=== PATIENT | male | born 1995 | race Caucasian/White ===

== ENCOUNTER 2016-10-01 01:16 | Emergency (ER) | payer OTHER ==
[~2016-10-01] VITALS: Ht 167.6 cm; Wt 127.2 kg
[2016-10-01 01:19] VITALS: TEMP 36.7; Ht 167.6 cm; Wt 127.2 kg
[2016-10-01] MEDS ORDERED: IBUPROFEN 600 MG TAB PO STA (01:47)
[2016-10-01] MEDS ORDERED: HYDROCODONE/ACETAMOPHEN 5/325MG TAB PO ONE (02:00)
[2016-10-01] MEDS ORDERED: ENOXAPARIN 1 MG/KG SQ ONE (04:15)
[2016-10-01] MEDS: WARFARIN SOD 5 MG TAB PO ONE ×2 (04:15→05:04)
[2016-10-01] MEDS ORDERED: LOVENOX TEACHING KIT ONE (04:15)
[2016-10-01] MEDS ORDERED: ENOXAPARIN 150 MG/1ML SYR SQ STA (04:32)
[2016-10-01 05:06] LABS: HEMATOCRIT 44.2 % (42-52); MEAN CELL VOLUME 66.2 fL (80-100); MEAN CORPUSCULAR HEMOGLOBIN 21.7 pg (25-34); MEAN CORPUSCULAR HGB CONC 32.8 g/dl (32-36); PLATELET COUNT 162 K/uL (130-400); RED BLOOD COUNT 6.68 M/uL (4.7-6.1); WHITE BLOOD COUNT 9.36 K/uL (4.8-10.8)
[2016-10-01 05:23] LABS: PARTIAL THROMBOPLASTIN RATIO 1.2; PROTHROMBIN TIME (PATIENT) 10.7 SECONDS (9.0-12.0)
[2016-10-01 05:28] LABS: ALT/SGPT 23 U/L (12-78); AST/SGOT 11 U/L (15-37); BLOOD UREA NITROGEN 11 mg/dl (7-18); BUN/CREATININE RATIO 15.6 (10-20); CALCIUM 7.6 mg/dl (8.5-10.1); CARBON DIOXIDE 28 mmol/L (21-32); CHLORIDE 107 mmol/L (98-107); CREATININE 0.68 mg/dl (0.60-1.40); GLUCOSE 96 mg/dl (70-99); POTASSIUM 3.7 mmol/L (3.5-5.1); SODIUM 142 mmol/L (136-145)
[2016-10-01 05:31] LABS: ALKALINE PHOSPHATASE 66 U/L (45-117)
[2016-10-01 05:38] LABS: COMPLETE YES; EOSINOPHIL % 1.8 %; LYMPH ABS # 3.51 K/uL (1.2-3.4); LYMPHOCYTE % 37.5 %; MICROCYTOSIS PRESENT; NEUTROPHILS % 41.9 %; VARIANT LYM ABS # 1.59 K/uL
[2016-10-01] MEDS ORDERED: WARFARIN SOD 5 MG TAB PO ONE (06:00)
[2016-10-01] MEDS ORDERED: ENOX120I SQ (06:11)
[2016-10-01] MEDS ORDERED: WARF5TAB90 PO (06:11)
--- NOTE | 2016-10-01 07:14 | DIAGNOSTIC IMAGING REPORT ---
RIGHT LOWER EXTREMITY VENOUS DOPPLER HISTORY: Right lower terminate pain and swelling. COMPARISON STUDY: None. FINDINGS: Thrombus identified within one of 2 posterior tibial veins. The remaining right lower extremity deep venous structures are patent. Edema deep to the incision within the right lower leg. IMPRESSION: Thrombus within one of 2 right posterior tibial veins. Electronically signed by: Hardik Boyd M.D. 10/01/2016 7:13 AM Dictated Date/Time: 10/01/2016 7:12 AM
--- NOTE | 2016-10-01 07:34 | DIAGNOSTIC IMAGING REPORT ---
RIGHT TIBIA/FIBULAR 2 VIEWS HISTORY: Right lower extremity pain. COMPARISON: None. FINDINGS: The proximal tibia and fibula. Intact. There is a cortical plate transfixed with screws bridging an old, healed fracture at the distal shaft of the tibia. The hardware appears intact. Mild distal pretibial soft tissue swelling. There is a nonunited mildly displaced fracture involving the distal shaft of the fibula which is likely old. This demonstrates 3 mm of lateral and posterior displacement. IMPRESSION: 1. Mildly displaced nonunited fracture at the distal shaft of the fibula which is likely old. 2. Old, healed distal tibial fracture with a cortical plate and screws. The hardware appears intact. 3. Mild distal pretibial soft tissue swelling. Electronically signed by: Hardik Boyd M.D. 10/01/2016 7:33 AM Dictated Date/Time: 10/01/2016 7:30 AM
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
[2016-10-01 09:40] VITALS: BP 137/79; PULSE 69; O2SAT 98
[2016-10-01] MEDS ORDERED: HYDR-5688 PO (19:32)
[2016-10-04 14:35] LABS: ANTITHROMBINIII ACTIVITY** 84 % activity (80-120); B2 GLYCOPROTEIN IGA <9 SAU (<=20); B2 GLYCOPROTEIN IGG <9 SGU (<=20); B2 GLYCOPROTEIN IGM <9 SMU (<=20); LUPUS ANTICOAGULANT** TC36573X Negative (Negative); PROTEIN C ACTIVITY** TC 1777X 108 % (70-180); PROTEIN S ACT(FUNCT)**1779X 116 % (70-150)
[2016-10-09] MEDS ORDERED: CMD5 PO (12:19)
[2016-10-16] MEDS ORDERED: WARF7.5T4 PO (16:14)
== END 2016-10-01 09:40 | disposition home or self-care (01) ==
LOC: C.EDB 01:17
DX: I82.441 Acute embolism and thrombosis of right tibial vein (principal); F17.200 Nicotine dependence, unspecified, uncomplicated

== ENCOUNTER 2016-10-01 16:30 | Emergency (ER) | payer OTHER ==
[~2016-10-01] VITALS: Ht 172.7 cm; Wt 126.5 kg
[~2016-10-01 16:30] MED LIST: ENOX120I SQ; WARF5TAB90 PO
[2016-10-01 16:46] VITALS: TEMP 37.1; Ht 172.7 cm; Wt 126.5 kg
[2016-10-01] MEDS ORDERED: HYDROCODONE/ACETAMINOPHEN 7.5/325MG TAB PO STA (19:07)
[2016-10-01] MEDS ORDERED: ENOXAPARIN 120 MG/0.8 ML SYR SQ ONE (19:15)
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
[2016-10-01] MEDS ORDERED: HYDR-5688 PO (19:32)
[2016-10-01 20:00] VITALS: BP 144/75; PULSE 65; O2SAT 99
[2016-10-09] MEDS ORDERED: CMD5 PO (12:19)
[2016-10-16] MEDS ORDERED: WARF7.5T4 PO (16:14)
== END 2016-10-01 20:03 | disposition home or self-care (01) ==
LOC: C.EDB 16:32
DX: I82.441 Acute embolism and thrombosis of right tibial vein (principal); F17.200 Nicotine dependence, unspecified, uncomplicated; Z79.01 Long term (current) use of anticoagulants

== ENCOUNTER → 2016-10-04 | Outpatient (CLI) | payer OTHER ==
[~2016-10-04] MED LIST changes: +CMD5 PO; +HYDR-5688 PO; +WARF7.5T4 PO
[2016-10-04 13:32] LABS: INR 1.2 (0.9-1.1); PROTHROMBIN TIME (PATIENT) 13.3 SECONDS (9.0-12.0)
== END | disposition home or self-care (01) ==
LOC: C.LABBC 09:33
PROVIDERS: ATTEND Internal Medicine Geriatric Medicine
DX: Z86.718 Personal history of other venous thrombosis and embolism (principal)

== ENCOUNTER 2016-10-06 00:34 | Emergency (ER) | payer OTHER ==
[~2016-10-06] VITALS: Ht 175.3 cm; Wt 125.9 kg
[~2016-10-06 00:34] MED LIST changes: -CMD5 PO; -WARF7.5T4 PO
[2016-10-06 00:46] VITALS: TEMP 37; Ht 175.3 cm; Wt 125.9 kg
[2016-10-06] MEDS ORDERED: WARF7.5T4 PO (01:01)
[2016-10-06] MEDS ORDERED: SODIUM CHLORIDE 0.9% 500ML 500 ML IV STA (01:02)
[2016-10-06] MEDS ORDERED: ENOX120I SQ (01:02)
--- NOTE | 2016-10-06 01:04 | EMERGENCY ROOM VISIT NOTE ---
History Report prepared by Mainor: Coty Sanches Under the Supervision of: Dr. Eliza Olea M.D. First contact with patient: 00:54 Chief Complaint: SWELLING TO EXTREMITY Stated Complaint: SWELLING RIGHT LEG History of Present Illness The patient is a 21 year old male who presents to the Emergency Room via with complaints of worsening swelling to his right leg with onset one day ago. He rates his discomfort as a 5/10. Recently, the patient was diagnosed with a DVT in his right leg. He was put on Coumadin and Lovenox. Per , blood work was done one day ago, and it was determined that the patient's INR was subtherapeutic. They were told to increase his dose of Coumadin. The patient continues his Lovenox. Today, the patient had shortness of breath. Source of History: patient, spouse/significant other Onset: one day ago Position: leg (right) Symptom Intensity: 5/10 Quality: other (leg swelling) Timing: worsening Associated Symptoms: + SOB Review of Systems See HPI for pertinent positives & negatives. A total of 10 systems reviewed and were otherwise negative. Past Medical & Surgical Medical Problems: (1) DVT (deep venous thrombosis) Family History Blood clots Diabetes mellitus Hypertension Kidney disease Kidney stones Social History Smoking Status: Current Every Day Smoker Drug Use: none Marital Status: Housing Status: lives with family Current/Historical Medications Scheduled Enoxaparin (Lovenox), 120 MG SQ Q12H Warfarin Sod (Jantoven), 7.5 MG PO DAILY Scheduled PRN Hydrocodone/Acetaminophen 5MG/325MG ([place] 5MG/325MG), 1 TABLET PO q4-6 PRN for Pain Allergies Coded Allergies: No Known Allergies (Unverified , 10/01/16) Physical Exam Vital Signs Date Time Temp Pulse Resp B/P Pulse Ox O2 Delivery O2 Flow Rate FiO2 10/06/16 03:32 57 20 134/74 96 10/06/16 02:45 72 20 156/101 98 Room Air 10/06/16 00:46 37.0 65 18 135/80 98 Room Air Physical Exam Vital signs reviewed. General: Well-appearing male, obese. HEENT: No scleral icterus, PERRLA, neck supple. Atraumatic. Cardiovascular: Regular rate and rhythm, no extra sounds. Pulmonary: Clear to auscultation bilaterally, normal work of breathing. Abdomen: Soft, nontender, nondistended, positive bowel sounds. Musculoskeletal: Atraumatic, edema to the mid and distal right lower extremity. Neurologic: Patient awake alert and oriented x 3, full strength in all 4 extremities. Cranial nerves 2 through 12 grossly intact. Skin: Warm, dry, no rash Medical Decision & Procedures ER Provider Diagnostic Interpretation: CT results as stated below per my review and radiologist interpretation: CTA Chest: No evidence of pulmonary embolism or aortic dissection. No lung consolidation, pneumothorax, or pleural effusion. Markedly enlarged heterogenous thyroid gland with left inferior extension into the upper mediastinum. There is associated mass effect on the trachea. An ill-defined 2.5 cm left thyroid nodule is noted. Consider followup ultrasound if indicated. Probably residual thymic tissue. Radiologist: Kell Moser MD. Laboratory Results 10/06/16 01:14 Red Blood Count 7.02, Mean Corpuscular Volume 64.0, Mean Corpuscular Hemoglobin 21.4, Mean Corpuscular Hemoglobin Concent 33.4 10/06/16 01:14 Test 10/06/16 01:14 White Blood Count 7.75 K/uL (4.8-10.8) Red Blood Count 7.02 M/uL (4.7-6.1) Hemoglobin 15.0 g/dL (14.0-18.0) Hematocrit 44.9 % (42-52) Mean Corpuscular Volume 64.0 fL (80-100) Mean Corpuscular Hemoglobin 21.4 pg (25-34) Mean Corpuscular Hemoglobin Concent 33.4 g/dl (32-36) Platelet Count 183 K/uL (130-400) RDW Standard Deviation 34.5 fL (36.4-46.3) RDW Coefficient of Variation 15.1 % (11.5-14.5) Neutrophils % (Manual) 40.0 % Lymphocytes % (Manual) 49.0 % Monocytes % (Manual) 6.0 % Eosinophils % (Manual) 5.0 % Neutrophils # (Manual) 3.10 K/uL (1.4-6.5) Total Absolute Neutrophils 3.10 K/uL (1.4-6.5) Lymphocytes # (Manual) 3.80 K/uL (1.2-3.4) Total Absolute Lymphocytes 3.80 K/uL (1.2-3.4) Monocytes # (Manual) 0.47 K/uL (0.11-0.59) Eosinophils # (Manual) 0.39 K/uL (0-0.5) Microcytosis PRESENT Prothrombin Time 14.0 SECONDS (9.0-12.0) Prothromb Time International Ratio 1.3 (0.9-1.1) Activated Partial Thromboplast Time 38.0 SECONDS (21.0-31.0) Partial Thromboplastin Ratio 1.5 Anion Gap 9.0 mmol/L (3-11) Est Creatinine Clear Calc Drug Dose 201.1 ml/min Estimated GFR () 149.9 Estimated GFR (Non- 129.3 BUN/Creatinine Ratio 17.0 (10-20) Calcium Level 7.9 mg/dl (8.5-10.1) Total Bilirubin 0.3 mg/dl (0.2-1) Direct Bilirubin < 0.1 mg/dl (0-0.2) Aspartate Amino Transf (AST/SGOT) 57 U/L (15-37) Alanine Aminotransferase (ALT/SGPT) 105 U/L (12-78) Alkaline Phosphatase 65 U/L (45-117) Total Protein 7.5 gm/dl (6.4-8.2) Albumin 3.5 gm/dl (3.4-5.0) Chemistry Specimen Hemolysis Laboratory results per my review. Medications Administered Medications (Trade) Dose Ordered Sig/Alesia Route Start Time Stop Time Status Last Admin Dose Admin Sodium Chloride (Nss 500ml) 500 ml @ 999 mls/hr Q31M STAT IV 10/06/16 01:02 10/06/16 01:32 DC 10/06/16 01:20 999 MLS/HR ECG Indication: SOB/dyspnea Rate (beats per minute): 68 Rhythm: normal sinus (with sinus arrhythmia ) Findings: other (J point elevation, possible pericarditis ) ED Course 0056: Past medical records reviewed. The patient was evaluated in room A12. A complete history and physical examination was performed. 0102: Sodium Chloride 500 ml @ 999 mls/hr IV 0310: Upon reevaluation, the patient appeared to have improvement of his symptoms. I discussed findings with the patient and his . They verbalized agreement of the treatment plan. The patient was discharged home. Medical Decision The patient is a 21 year old male who presents to the ED with complaints of right leg swelling. Differentials include: Etiologies such as DVT, musculoskeletal, infection, joint effusion, trauma, lymphedema, idiopathic, CHF , as well as others were entertained. This pt was evaluated and appears to be in no distress. IV access was obtained and lab work was drawn. Laboratory work reveals no significant abnormalities. Patient's INR is subtherapeutic. He continues to use his Lovenox. CT scan of the chest was performed as the patient is complaining of pleuritic pain with shortness of breath. This study is negative for PE. The thyroid is large with a thyroid nodule appreciated. Patient and his are informed of this finding. He will continue his Lovenox and increase the Coumadin as directed by Coumadin clinic earlier today. He will continue to follow with Coumadin clinic. Patient will follow-up with his primary care physician regarding the thyroid and return to the ER for worsening of symptoms or any medical concerns. Impression Primary Impression: Enlarged thyroid Additional Impressions: Thyroid nodule DVT (deep venous thrombosis) Scribe Attestation The scribe's documentation has been prepared under my direction and personally reviewed by me in its entirety. I confirm that the note above accurately reflects all work, treatment, procedures, and medical decision making performed by me. Departure Information Dispostion Home / Self-Care Referrals No Doctor, Assigned (PCP) Forms HOME CARE DOCUMENTATION FORM, IMPORTANT VISIT INFORMATION, WORK / SCHOOL INSTRUCTIONS Patient Instructions My [facility] Additional Instructions Diagnosis: DVT, enlarged thyroid, thyroid nodule Continue Coumadin as prescribed today as well as Lovenox injections. Continue management with your primary care physician. Have your blood pressure rechecked and further evaluation of your thyroid gland will be necessary. Wear the support stocking and elevate the leg as much as possible. Return to the emergency department for worsening of symptoms or any medical concerns. Problem Qualifiers Additional Impressions: DVT (deep venous thrombosis) DVT location: lower extremity Affected thrombotic vein of extremity: tibial Laterality: right Chronicity: acute Qualified Codes: I82.441 - Acute embolism and thrombosis of right tibial vein
[2016-10-06] MEDS ORDERED: OPTIRAY 320 IV PRN (01:15)
[2016-10-06 01:27] LABS: HEMATOCRIT 44.9 % (42-52); MEAN CORPUSCULAR HEMOGLOBIN 21.4 pg (25-34); MEAN CORPUSCULAR HGB CONC 33.4 g/dl (32-36); PLATELET COUNT 183 K/uL (130-400); RED BLOOD COUNT 7.02 M/uL (4.7-6.1); WHITE BLOOD COUNT 7.75 K/uL (4.8-10.8)
[2016-10-06 01:56] LABS: ALKALINE PHOSPHATASE 65 U/L (45-117); ALT/SGPT 105 U/L (12-78); BLOOD UREA NITROGEN 13 mg/dl (7-18); CALCIUM 7.9 mg/dl (8.5-10.1); CARBON DIOXIDE 28 mmol/L (21-32); CHLORIDE 105 mmol/L (98-107); CREATININE 0.75 mg/dl (0.60-1.40); SODIUM 142 mmol/L (136-145)
[2016-10-06 02:09] LABS: GLUCOSE 84 mg/dl (70-99); POTASSIUM 4.2 mmol/L (3.5-5.1)
[2016-10-06 02:13] LABS: AST/SGOT 57 U/L (15-37)
[2016-10-06 02:23] LABS: INR 1.3 (0.9-1.1); PARTIAL THROMBOPLASTIN RATIO 1.5
[2016-10-06 03:23] LABS: COMPLETE YES; MICROCYTOSIS PRESENT
[2016-10-06 03:32] VITALS: BP 134/74; PULSE 57; O2SAT 96
--- NOTE | 2016-10-06 06:14 | DIAGNOSTIC IMAGING REPORT ---
CHEST CTA for PULMONARY ARTERIES CT DOSE: 781.50 mGy.cm HISTORY: Chest pain dyspnea TECHNIQUE: Multiaxial CT images of the chest were performed following the intravenous administration of contrast to evaluate the pulmonary arteries. Maximal intensity projection images were also obtained. COMPARISON STUDY: None. FINDINGS: There is a normal caliber thoracic aorta with no evidence for dissection. There is no evidence for pulmonary embolus. No pleural effusions. No pneumothorax. The liver and spleen are unremarkable. No mediastinal or hilar lymphadenopathy. The central airways are patent. The lungs are clear. Note is made of an enlarged heterogeneous substernal thyroid IMPRESSION: No evidence for pulmonary embolus. Lungs are clear. Enlarged heterogeneous substernal thyroid Electronically signed by: Agusto Darby M.D. 10/06/2016 6:13 AM Dictated Date/Time: 10/06/2016 6:12 AM
[2016-10-09] MEDS ORDERED: CMD5 PO (12:19)
[2016-10-16] MEDS ORDERED: WARF7.5T4 PO (16:14)
== END 2016-10-06 03:33 | disposition home or self-care (01) ==
LOC: C.EDB 00:35 → C.EDA 03:33
DX: I82.401 Acute embolism and thrombosis of unspecified deep veins of right lower extremity (principal); E04.1 Nontoxic single thyroid nodule; Z79.01 Long term (current) use of anticoagulants; Z83.3 Family history of diabetes mellitus; Z82.49 Family history of ischemic heart disease and other diseases of the circulatory system; F17.210 Nicotine dependence, cigarettes, uncomplicated

== ENCOUNTER 2016-10-14 22:35 | Emergency (ER) | payer OTHER ==
[~2016-10-14 22:35] MED LIST changes: +CMD5 PO; -ENOX120I SQ; -WARF5TAB90 PO
[2016-10-14 22:39] VITALS: BP 140/87; PULSE 88; TEMP 36.8; O2SAT 97
[2016-10-14] MEDS ORDERED: OXYMETAZOLINE HCL 0.05% NA SPR 15 ML BTL ONE (23:15)
--- NOTE | 2016-10-14 23:23 | EMERGENCY ROOM VISIT NOTE ---
ED Visit Note First contact with patient: 23:01 Chief Complaint: Nose Bleed History of Present Illness: Patient is a 21-year-old male who presents to the emergency Department this evening for evaluation of wax and wane nosebleeds. The patient was recently placed on Coumadin for a DVT. He was on Lovenox as well. He is currently off the Lovenox and only on Coumadin. Today he developed a slight nosebleed from the LEFT nares approximately 10:30 PM. The bleeding stopped at this point. There is been no trauma to the affected naris. Patient denies any pain rating his discomfort a 0/10. He denies fevers, chills, headaches, dizziness, lightheadedness, nausea, or vomiting. Medications: Warfarin Allergies: No known allergies. PMH: No pertinent past history. SHx: Patient is a 21-year-old male who lives locally. ROS: All pertinent positive and negative review of systems are appropriately documented in the History of Present Illness. Physical Exam: VITAL SIGNS - Vital signs and nursing notes were reviewed. GENERAL - Well nourished, well developed 21-year-old male in no acute distress. Pt communicates well with provider and answers questions appropriately. SKIN - Without rash. HEAD - NC/AT with no obvious deformities. EYES - PERRL with EOMI bilaterally. Sclera without injection. Palpebral conjunctiva pink and moist. EARS - No deformities of external structures noted on gross examination bilaterally. No pain elicited with palpation of the tragus bilaterally. External auditory canals without discharge or otorrhea. Tympanic membranes pearly carlos without retraction or bulging. No fluid or purulent material visualized behind the TM. Handle of malleus, umbo, cone of light, pars tensa/ flaccid all easily visualized. NOSE - Midline and without cyanosis. No purulent drainage noted. Nasal mucosa without mucus discharge. No active bleeding noted. No blood in the oropharynx. MOUTH/OROPHARYNX - Without perioral cyanosis. Buccal mucosa pink and moist and without leukoplakia. Tongue midline with equal elevation of palate bilaterally. No tonsillar hypertrophy, erythema, or exudates noted. Good dentition noted. NECK - Neck with FROM. Supple to palpation. No lymphadenopathy noted. No nuchal rigidity. ED Course: Patient was seen and evaluated by myself. Previous emergency department visit notes reviewed. The patient has no active bleeding at this time. He was provided Afrin nasal spray and a clamp to use for any returning bleeding. He was educated on worrisome symptoms for return visit to the emergency department. Patient discharged home in good condition. In the evaluation and treatments patient, following differential diagnoses were considered: Sinusitis, digital trauma, hypertension, vascular abnormality, amongst others. Impression: Epistaxis - Resolved Discharge Instructions: You have been treated in the Emergency Department today for your Nose Bleed ( Epistaxis). Use the Afrin nasal spray and clamp as needed for bleeding. Do NOT blow your nose for the next few days. This can result in recurrence of your nosebleed. You should consider using a humidifier to help moisten the air and decrease instances of nosebleeds. You can use luzm-ubz-smcfyid saline nasal sprays to help moisten the nasal mucosa and decrease instances of nosebleeds. As with any trip to the Emergency Department, you should follow-up with your Primary Care Provider from today's visit. Return to the emergency department if your symptoms persist despite treatment plan outlined above or if the following symptoms occur: uncontrollable nosebleed , dizziness, lightheadedness, pre-syncope, or re-bleed. Problem List Medical Problems: (1) DVT (deep venous thrombosis) Status: Chronic Current/Historical Medications Scheduled Warfarin Sod (Coumadin), 10 MG PO DAILY Allergies Coded Allergies: No Known Allergies (Unverified , 10/14/16) Vital Signs Date Time Temp Pulse Resp B/P Pulse Ox O2 Delivery O2 Flow Rate FiO2 10/14/16 22:39 36.8 88 18 140/87 97 Room Air Medications Administered Medications (Trade) Dose Ordered Sig/Alesia Route Start Time Stop Time Status Last Admin Dose Admin Oxymetazoline HCl (Afrin 0.05% Nasal Ama) 1 sprays NOW ONCE NA 10/14/16 23:15 10/14/16 23:16 DC 10/14/16 23:27 1 SPRAYS Departure Information Impression Primary Impression: Epistaxis Dispostion Home / Self-Care Condition GOOD Referrals No Doctor, Assigned (PCP) Patient Instructions ED Epistaxis Lynda Berumen [facility] Additional Instructions You have been treated in the Emergency Department today for your Nose Bleed ( Epistaxis). Use the Afrin nasal spray and clamp as needed for bleeding. Do NOT blow your nose for the next few days. This can result in recurrence of your nosebleed. You should consider using a humidifier to help moisten the air and decrease instances of nosebleeds. You can use [id number]-mwlbrpg saline nasal sprays to help moisten the nasal mucosa and decrease instances of nosebleeds. As with any trip to the Emergency Department, you should follow-up with your Primary Care Provider from today's visit. Return to the emergency department if your symptoms persist despite treatment plan outlined above or if the following symptoms occur: uncontrollable nosebleed , dizziness, lightheadedness, pre-syncope, or re-bleed.
[2016-10-16] MEDS ORDERED: WARF7.5T4 PO (16:14)
== END 2016-10-14 23:30 | disposition home or self-care (01) ==
LOC: C.EDB 22:36 → C.EDC 23:30
DX: R04.0 Epistaxis (principal); Z86.718 Personal history of other venous thrombosis and embolism; Z79.01 Long term (current) use of anticoagulants

== ENCOUNTER → 2017-04-18 | Outpatient (CLI) | payer OTHER ==
[~2017-04-18] MED LIST changes: -HYDR-5688 PO; +WARF7.5T4 PO
== END | disposition home or self-care (01) ==
LOC: C.RDSM 09:53
PROVIDERS: ATTEND Orthopaedic Surgery Sports Medicine
DX: R52 Pain, unspecified (principal)